=== PATIENT | male | born 1950 | race Caucasian/White ===

== ENCOUNTER → 2022-04-10 | Outpatient (CLI) | payer MEDICARE ==
--- NOTE | 2022-04-10 20:42 | Diagnostic Imaging Report ---
INDICATION: Dyspnea, shortness of breath PA and lateral chest obtained at 0136 p.m., there is no prior study for comparison. Heart and mediastinal silhouette are normal in appearance. There are calcified nodes in the left hilum and AP window, compatible with old granulomatous disease. There is no acute infiltrate or pneumothorax or pleural fluid. IMPRESSION: Old granulomatous changes. No acute process in the chest. Dictated by: Dictated on workstation # [id number]
== END ==
LOC: RAD FS 13:24 → EDSEX 13:24
PROVIDERS: ATTEND Nurse Practitioner Family
DX: J84.10 Pulmonary fibrosis, unspecified (principal)
CPT/HCPCS: 71046